=== PATIENT | male | born 1970 | race Caucasian/White ===

== ENCOUNTER 2017-05-09 23:13 | Emergency (ER) | payer OTHER ==
[~2017-05-09] VITALS: Ht 167.6 cm; Wt 65.8 kg
[~2017-05-09 23:13] MED LIST: MIRT15 PO
[2017-05-09] MEDS ORDERED: PARO20 PO (23:23)
[2017-05-10 00:40] LABS: Source, Urine Clean Catch
[2017-05-10 01:01] LABS: Blood, Urine 2+ (Neg); Glucose Qualitative, Urine Neg (Neg); Ketones, Urine Neg (Neg); Leukocyte Esterase, Urine Neg (Neg); Nitrite, Urine Neg (Neg); Protein, Urine 3+ (Neg); Urobilinogen, Urine 2+ (Normal)
[2017-05-10 01:10] LABS: Calcium, Ionized (POC) 1.23 mmol/L (1.10-1.46); Chloride (POC) 104 mmol/L (98-108); Creatinine (POC) 1.2 mg/dL (0.8-1.3); Glucose (ISTAT POC) 108 mg/dL (70-99); Hemoglobin (POC) 10.5 g/dL (13.5-17.5); Potassium (POC) 3.7 mmol/L (3.5-5.5); Sodium (POC) 141 mmol/L (135-148); Total CO2 (POC) 25 mmol/L (21-32)
[2017-05-10 01:12] LABS: Bilirubin, Urine 1+ (Neg)
[2017-05-10 01:13] LABS: Appearance, Urine Clear (Clear); Bacteria Rare /hpf; Calcium Oxalate Crystals Mod /hpf; Color, Urine Yellow (P-Yellow); Red Blood Cells, Urine 0-2 /hpf (0-2); Squamous Epithelial Cells Few /hpf (Few); White Blood Cells, Urine 0-2 /hpf (0-5)
[2017-05-10] MEDS ORDERED: Pyridium100 MG PO (01:31)
== END 2017-05-10 02:30 | disposition home or self-care (01) ==
LOC: ER 23:13
PROVIDERS: Emergency Medicine
DX: R31.9 Hematuria, unspecified (principal); R30.0 Dysuria; Z79.899 Other long term (current) drug therapy; F32.9 Major depressive disorder, single episode, unspecified; F17.200 Nicotine dependence, unspecified, uncomplicated; Z87.442 Personal history of urinary calculi
CPT/HCPCS: 36415; 51798; 80047; 81001; 85014; 96360; 99283; J7030

== ENCOUNTER → 2023-06-02 | Outpatient (CLI) | payer MEDICARE, OTHER ==
[~2023-06-02] MED LIST changes: +ALBU90OI INH; +AMLO5 PO; +ASPI81CH PO; +ATOR20 PO; +Budeprion Xl300 MG; +FERSU300 PO; +FLUT1DIS5 INH; +IPRAT-ALBUT 0.5-3 ML IH; +METO25ER PO; +NITR.4SL SL; +OMEP20ER PO; +PARO20 PO; +Pyridium100 MG PO; +ROPI1 PO; +ROPINIROLE HCL4 M1 PO; +TUDORZA PRESS400 MC1 IH; +ZESTRIL40 M1 PO
[2023-06-07 19:41] LABS: ALBUMIN %,URINE 73.3 %; ALPHA-1 %,URINE 5.9 %; ALPHA-2 %,URINE 13.4 %; BETA GLOBULIN %,URINE 7.4 %; HOURS COLLECTED 24 hr; TOTAL PROTEIN,URINE-PER VOLUME 11 mg/dL; TOTAL VOLUME 1100 mL; URINE 24 HOUR PROTEIN 121 mg/d (40-150)
== END ==
LOC: LAB SHORT 07:00 → LAB 07:00
PROVIDERS: Physician Assistant
DX: G62.9 Polyneuropathy, unspecified (principal)
CPT/HCPCS: 81050; 84156; 84166; 86335